=== PATIENT | female | born 1950 | race Caucasian/White ===

== ENCOUNTER → 2018-05-04 | Outpatient (CLI) | payer MEDICARE, OTHER ==
[~2018-05-04] MED LIST: HYDR-3870 PO; LISI2.5T PO; NITR-65 PO; SIMV5TAB6 PO; TAMS0.4C98 PO; antibiotic; biotin; vitamin d; zinc
--- NOTE | 2018-05-04 15:39 | Diagnostic Imaging Report ---
INDICATION: History of left renal calculi. COMPARISON: None. FINDINGS: Single supine radiographic view of the abdomen was obtained. There is a 0.6 x 1 cm calculus in the region of the left renal pelvis. No other unexpected extraosseous calcifications or radiopaque foreign bodies are seen. Small bowel loops are nondistended. There is no large collection of free intraperitoneal air. Bony structures show no gross acute abnormalities. IMPRESSION: Large left renal pelvic calculus. Dictated by: Dictated on workstation # [id number]
== END ==
LOC: RAD 13:02
PROVIDERS: ATTEND Urology
DX: N20.0 Calculus of kidney (principal)
CPT/HCPCS: 74018

== ENCOUNTER 2018-05-12 06:48 | Day surgery (SDC) | payer MEDICARE, OTHER ==
[~2018-05-12] VITALS: Ht 175.3 cm; Wt 93.4 kg
[2018-05-12 07:00] VITALS: BP 164/81
[2018-05-12] MEDS ORDERED: cefTRIAXone FOR IV USE 1,000 MG in NS (IVPB) 50 ML IV ONE (07:15)
[2018-05-12] MEDS ORDERED: LACTATED RINGERS 1,000 ML IV PRN (07:19)
--- NOTE | 2018-05-12 07:38 | Diagnostic Imaging Report ---
INDICATION: Stone disease. Exam compared 05/04/2018. FINDINGS: The left upper quadrant calculus measures 6.7 mm transverse with height of 5.8 mm. This is not substantially changed when measured along the same axis from prior. Bilateral pelvic calcifications with central lucencies are believed to reflect phleboliths unchanged. IMPRESSION: Left-sided renal calculus and showed significant change. Dictated by: Dictated on workstation # [id number]
--- NOTE | 2018-05-12 07:40 | Progress Note-Pre Operative ---
Pre-Operative Progress Note H&P Reviewed The H&P was reviewed, patient examined and no changes noted. Date Seen by Provider: May 12, 2018 Time Seen by Provider: 07:40 Date H&P Reviewed: May 12, 2018 Time H&P Reviewed: 07:40 Pre-Operative Diagnosis: LT RENAL STONE ALISHA ARAGON MD May 12, 2018 7:40 am
[2018-05-12] MEDS ORDERED: CATHETER FLUSH 10 ML SYR IV PRN (07:45)
[2018-05-12] MEDS ORDERED: LIDOCAINE PF 2% 2 ML (XYLOCAINE) VIAL ONE (07:59)
[2018-05-12] MEDS ORDERED: FUROSEMIDE 40 MG/4 ML INJ (LASIX) ONE (07:59)
[2018-05-12] MEDS ORDERED: ONDANSETRON 4 MG/2 ML (SDV) Z0FRAN ONE (07:59)
[2018-05-12] MEDS ORDERED: KETOROLAC 30 MG/ML VIAL ONE (07:59)
[2018-05-12] MEDS ORDERED: proPOfol 200 MG/20 ML (DIPRIVAN) VIAL IV ONE (07:59)
[2018-05-12] MEDS ORDERED: MIDAZOLAM 2 MG/2 ML (VERSED) VIAL ONE (08:00)
[2018-05-12] MEDS ORDERED: fentaNYL INJECTION 100 MCG/2 ML AMP ONE (08:00)
[2018-05-12] MEDS ORDERED: SEVOFLURANE (ULTANE) 15 ML INHAL SOLN ONE ×2 (08:04→09:40)
[2018-05-12] MEDS ORDERED: antibiotic (08:05)
[2018-05-12] MEDS ORDERED: vitamin d (08:05)
[2018-05-12] MEDS ORDERED: SIMV5TAB6 PO (08:05)
[2018-05-12] MEDS ORDERED: LISI2.5T PO (08:05)
[2018-05-12] MEDS ORDERED: zinc (08:05)
[2018-05-12] MEDS ORDERED: biotin (08:05)
--- NOTE | 2018-05-12 09:21 | Discharge Inst-Urology ---
Discharge Inst-Urology Discharge Medications New, Converted, or Re-newed RX: RX on Chart Patient Instructions/Follow Up Plan Please make appointment to been seen in office Thursday 05/24, ROBIN prior to it. KUB on way home Post ESWL instructions Increase oral fluids for 48 hours and then as needed. Diet and Activity as tolerated. If questions or concerns contact your physician Or seek help at emergency department. ALISHA ARAGON MD May 12, 2018 9:21 am
--- NOTE | 2018-05-12 09:22 | Progress Note-Post Operative ---
Post-Operative Progess Note Surgeon (s)/Cane Flume Chute Operator (s) Surgeon ALISHA ARAGON MD Cane Flume Chute Operator: N/A Pre-Operative Diagnosis LT RENAL STONE Post-Operative Diagnosis SAME Procedure & Operative Findings Date of Procedure 05/12/18 Procedure Performed/Findings LT ESWL Anesthesia Type GENERAL Estimated Blood Loss Estimated blood loss (mL): N/A Specimens/Packing Specimens Removed N/A Packing: N/A ALISHA ARAGON MD May 12, 2018 9:22 am
[2018-05-12] MEDS ORDERED: ONDANSETRON 4 MG/2 ML (SDV) Z0FRAN IVP PRN (10:15)
[2018-05-12] MEDS ORDERED: morphine INJ 10 MG/ML 1ML (SYR OR VIAL) IVP ONE (10:15)
[2018-05-12 11:00] VITALS: BP 132/106
[2018-05-12] MEDS ORDERED: HYDR-3870 PO (11:29)
[2018-05-12] MEDS ORDERED: TAMS0.4C98 PO (11:29)
[2018-05-12] MEDS ORDERED: NITR-65 PO (11:29)
[2018-05-12 11:30] VITALS: BP 127/75
[2018-05-12 12:00] VITALS: BP 128/69
--- NOTE | 2018-05-12 12:41 | Diagnostic Imaging Report ---
INDICATION: Status post lithotripsy. TIME OF EXAM: 12:14 PM. COMPARISON: Correlation is made with prior study earlier same day. FINDINGS: There has been fragmentation of the calculus overlying the medial aspect of the left kidney, status post lithotripsy. No definite calculi within the ureters are seen. Bowel gas pattern is unremarkable. IMPRESSION: Fragmentation of left sided urinary tract calculus, status post lithotripsy. Dictated by: Dictated on workstation # [id number]
--- NOTE | 2018-05-12 14:18 | Anesthesia-General Post-Op ---
General Patient Condition Mental Status/LOC: Same as Preop Cardiovascular: Satisfactory Nausea/Vomiting: Absent Respiratory: Satisfactory Pain: Controlled Complications: Absent Post Op Complications Complications None Follow Up Care/Instructions Patient Instructions None needed. Anesthesia/Patient Condition Patient Condition Patient is doing well, no complaints, stable vital signs, no apparent adverse anesthesia problems. No complications reported per nursing. MELVIN ESCOBAR CRNA May 12, 2018 14:18
--- NOTE | 2018-05-12 19:36 | OPERATIVE REPORT ---
DATE OF SERVICE: 05/12/2018 PREOPERATIVE DIAGNOSIS: Left renal stone. POSTOPERATIVE DIAGNOSIS: Left renal stone. OPERATION PERFORMED: Left ESWL. SURGEON: Francisco Aragon M.D. ANESTHESIA: General. COMPLICATIONS: None. DESCRIPTION OF PROCEDURE: Under satisfactory general anesthesia, the patient in supine position on the ESWL table, the left renal stone was localized. Shocks were delivered at kV of 4. A 3000 shocks completely fragmented the stone that was not visible anymore. The patient received 30 mg of Toradol and 40 mg of Lasix IV at the end of the procedure. She tolerated the procedure and anesthesia well and was sent to recovery room in stable condition. Job ID: [id number] DocumentID: [id number] Dictated Date: 05/12/2018 09:50:09 [employer] Date: 05/12/2018 13:59:24 Dictated By: FRANCISCO ARAGON MD
== END 2018-05-12 12:12 | disposition home or self-care (01) ==
LOC: SDC 06:48
PROVIDERS: ATTEND Urology
DX: N20.0 Calculus of kidney (principal); E78.00 Pure hypercholesterolemia, unspecified; E11.9 Type 2 diabetes mellitus without complications; I10 Essential (primary) hypertension; E78.5 Hyperlipidemia, unspecified; Z79.899 Other long term (current) drug therapy; Z11.2 Encounter for screening for other bacterial diseases
CPT/HCPCS: 74018; 82962; 87081

== ENCOUNTER → 2018-05-24 | Outpatient (CLI) | payer MEDICARE, OTHER ==
--- NOTE | 2018-05-24 16:05 | Diagnostic Imaging Report ---
INDICATION: Nephrolithiasis KUB 2:52 PM There is a small calcification projecting over the lower pole of the left kidney and another projecting over the left renal pelvis. Each of these measures about 3 mm in diameter. There is some tiny calcifications in the periphery of the pelvis that are probably phleboliths. IMPRESSION: Left nephrolithiasis. Dictated by: Dictated on workstation # [id number]
== END ==
LOC: RAD 14:20
PROVIDERS: ATTEND Urology
DX: N20.0 Calculus of kidney (principal)
CPT/HCPCS: 74018